=== PATIENT | female | born 1990 | race Caucasian/White ===

== ENCOUNTER 2017-08-26 22:15 | Inpatient (IN) | payer BC ==
[2017-08-26] MEDS ORDERED: Butorphanol 1 MG/ML SDV IVPUSH PRN (23:41)
[2017-08-26] MEDS ORDERED: Tranexamic Acid 1,000 MG in Sodium Chloride 0.9% 100 ML IV PRN (23:41)
[2017-08-26] MEDS ORDERED: Sodium Chloride 0.9% 10 ML Syringe FLUSH PRN (23:41)
[2017-08-26] MEDS ORDERED: Carboprost Tromethamine 250 MCG/1 ML Amp IM PRN (23:41)
[2017-08-26] MEDS ORDERED: Lidocaine 1% 50 ML MDV INJECT PRN (23:41)
[2017-08-26] MEDS ORDERED: Sodium Chloride 0.9% 2.5 ML Syringe FLUSH PRN (23:41)
[2017-08-26] MEDS ORDERED: Methylergonovine 0.2 MG/1 ML Amp IM PRN (23:41)
[2017-08-26] MEDS ORDERED: Misoprostol 200 MCG Tab PO PRN (23:41)
[2017-08-26] MEDS ORDERED: Nalbuphine 10 MG/1 ML Vial IVPUSH PRN (23:41)
[2017-08-26] MEDS ORDERED: Water For Irrigation,Sterile 1,000 ML Container IRR PRN (23:41)
[2017-08-26] MEDS ORDERED: Lactated Ringers 1,000 ML IV SCH (23:45)
[2017-08-26] MEDS ORDERED: Oxytocin/0.9 % Sodium Chloride 30 UNIT/500 ML BAG IV SCH (23:45)
[2017-08-27] MEDS ORDERED: Terbutaline 1 MG/ML SDV SUBCUT PRN (00:30)
[2017-08-27] MEDS ORDERED: Oxytocin/0.9 % Sodium Chloride 30 UNIT/500 ML BAG IV SCH (00:30)
[2017-08-27] MEDS ORDERED: Ropivacaine 0.2% 2 MG/ML 20 ML SDV ONE (05:43)
[2017-08-27] MEDS ORDERED: Ibuprofen 400 MG Tab PO PRN (10:58)
[2017-08-27] MEDS ORDERED: Acetaminophen 500 MG Tab PO PRN ×2 (10:58)
[2017-08-27] MEDS ORDERED: Docusate Sodium 100 MG Cap PO PRN (10:58)
[2017-08-27] MEDS ORDERED: Ibuprofen 800 MG Tab PO PRN (10:58)
[2017-08-27] MEDS ORDERED: Witch Hazel Medicated Pads 40/Jar TOP PRN (10:58)
[2017-08-27] MEDS ORDERED: oxyCODONE 5 MG Tab PO PRN (10:58)
[2017-08-27] MEDS ORDERED: Hydrocortisone 2.5% Crm 30 GM Tube TOP PRN (10:58)
[2017-08-27] MEDS ORDERED: Lanolin 100% Cream 7 GM Tube TOP PRN (10:58)
[2017-08-27] MEDS ORDERED: Benzocaine/Menthol 20%-0.5% Spray 78 GM Cannister TOP PRN (10:58)
[2017-08-27] MEDS ORDERED: Bisacodyl 10 MG Supp RECTAL PRN (10:58)
[2017-08-27] MEDS ORDERED: Ondansetron 4 MG/2 ML SDV IVPUSH PRN (10:58)
--- NOTE | 2017-08-27 19:43 | PCM48HPAN ---
Post Anesthesia Note - EVALUATION WITHIN 48HRS OF ANESTHETIC Vital Signs in Normal Range: Yes Patient Participated in Evaluation: Yes Respiratory Function Stable: Yes Airway Patent: Yes Cardiovascular Function Stable: Yes Hydration Status Stable: Yes Pain Control Satisfactory: Yes Nausea and Vomiting Control Satisfactory: Yes Mental Status Recovered: Yes Resp Rate: 17
--- NOTE | 2017-08-28 08:26 | PCM.PNPP ---
- General Info Date of Service: 08/28/17 Admission Dx/Problem (Free Text): 27yo P2 s/p PPD1 Subjective Update: She denies any complains today , Normal lochia Functional Status: Reports: Pain Controlled, Tolerating Diet, Ambulating, Urinating - Review of Systems General: Reports: No Symptoms HEENT: Reports: No Symptoms Pulmonary: Reports: No Symptoms Cardiovascular: Reports: No Symptoms Gastrointestinal: Reports: No Symptoms Genitourinary: Reports: No Symptoms Musculoskeletal: Reports: No Symptoms Skin: Reports: No Symptoms Neurological: Reports: No Symptoms Psychiatric: Reports: No Symptoms - General Info Date of Service: 08/28/17 - Patient Data Vital Signs - Most Recent: Last Vital Signs Temp 37.1 C 08/27/17 20:00 Pulse 72 08/27/17 20:00 Resp 18 08/27/17 20:00 BP 121/64 08/27/17 20:00 Pulse Ox 98 08/27/17 20:00 Weight - Most Recent: 78.925 kg Lab Results - Last 24 Hours: Laboratory Results - last 24 hr 08/27/17 08/28/17 Range/Units 06:43 04:58 Hgb 11.9 L (12.0-16.0) g/dL Hct 34.8 L (36.0-46.0) % Cord ABG pH 7.181 (7.18-7.38) Cord ABG Base Excess -6 (-10--2) Cord VBG pH 7.260 (7.25-7.45) Cord VBG Base Excess -6 (-10--2) Med Orders - Current: Current Medications Acetaminophen (Tylenol Extra Strength) 500 mg PO Q4H PRN PRN Reason: Pain Acetaminophen (Tylenol Extra Strength) 1,000 mg PO Q4H PRN PRN Reason: Pain Benzocaine/Menthol (Dermoplast Pain Relief 20%-0.5% [place]) 78 gm TOP ASDIRECTED PRN PRN Reason: Perineal Comfort Measure Bisacodyl (Dulcolax) 10 mg RECTAL .ONCE PRN PRN Reason: Constipation Docusate Sodium (Colace) 100 mg PO BID PRN PRN Reason: Constipation Emollient Ointment (Lansinoh Hpa) 0 gm TOP ASDIRECTED PRN PRN Reason: Sore Nipples Hydrocortisone (Proctozone-Hc 2.5% Crm) 1 gm TOP ASDIRECTED PRN PRN Reason: Itching Ibuprofen (Motrin) 400 mg PO Q4H PRN PRN Reason: Pain Ibuprofen (Motrin) 800 mg PO Q6H PRN PRN Reason: Pain Ondansetron HCl (Zofran) 4 mg IVPUSH Q6H PRN PRN Reason: Nausea/Vomiting Oxycodone HCl (Oxycodone) 5 mg PO Q2H PRN PRN Reason: Pain Witch Christianne (Tucks) 1 pad TOP ASDIRECTED PRN PRN Reason: comfort care Discontinued Medications Butorphanol Tartrate (Stadol) 1 mg IVPUSH Q1H PRN PRN Reason: Pain Carboprost Tromethamine (Hemabate Ds) 250 mcg IM ASDIRECTED PRN PRN Reason: Post Hemorrhage Tranexamic Acid 1,000 mg/ (Sodium Chloride) 110 mls @ 660 mls/hr IV ONETIME PRN PRN Reason: Bleeding Lactated Ringer's (Ringers, Lactated) 1,000 mls @ 150 mls/hr IV ASDIRECTED FRANK Oxytocin/Sodium Chloride (Oxytocin 30 Unit/500 Ml-Ns) 30 unit in 500 mls @ 250 mls/hr IV TITRATE FRANK Oxytocin/Sodium Chloride (Oxytocin 30 Unit/500 Ml-Ns) 30 unit in 500 mls @ 2 mls/hr IV TITRATE FRANK; Protocol Fentanyl/Bupivacaine HCl (Aehhxwqj-Wifgb-Gr 2 Mcg/Ml-0.125%) Confirm Administered Dose 100 mls @ as directed EP .STK-MED ONE Stop: 08/27/17 05:44 Last Admin: 08/27/17 13:57 Dose: Not Given Lidocaine HCl (Xylocaine 1%) 50 ml INJECT .ONCE PRN PRN Reason: Laceration repair Methylergonovine Maleate (Methergine) 0.2 mg IM ASDIRECTED PRN PRN Reason: Post Hemorrhage Misoprostol (Cytotec) 200 mcg PO .ONCE PRN PRN Reason: Post Hemorrhage Nalbuphine HCl (Nubain) 10 mg IVPUSH Q1H PRN PRN Reason: Pain (severe 7-10) Ropivacaine (Naropin 0.2%) Confirm Administered Dose 20 ml .ROUTE .STK-MED ONE Stop: 08/27/17 05:44 Last Admin: 08/27/17 13:57 Dose: Not Given Sodium Chloride (Saline Flush) 10 ml FLUSH ASDIRECTED PRN PRN Reason: Keep Vein Open Sodium Chloride (Saline Flush) 2.5 ml FLUSH ASDIRECTED PRN PRN Reason: Keep Vein Open Sterile Water (Sterile Water For Irrigation) 1,000 ml IRR ASDIRECTED PRN PRN Reason: delivery Terbutaline Sulfate (Brethine) 0.25 mg SUBCUT ASDIRECTED PRN PRN Reason: Tacysystole - Infant Interaction Disposition, : [place] to Nursery Feeding: Breastfed ; Nursed Well - Recovery Exam Fundal Tone: Firm Fundal Level: At Umbilicus Fundal Placement: Midline Lochia Amount: Small Lochia Color: Rubra/Red Perineum Description: Intact, Minimal Bruising/Swelling Episiotomy/Laceration: None Bladder Status: Voiding Urinary Elimination: Voided - Exam General: Alert, Oriented HEENT: Pupils Equal Neck: Supple Lungs: Clear to Auscultation Cardiovascular: Regular Rate, Regular Rhythm GI/Abdominal Exam: Normal Bowel Sounds Extremities: Normal Inspection Psy/Mental Status: Alert - Problem List & Annotations (1) Vaginal delivery SNOMED Code(s): 512063451 Code(s): O80 - ENCOUNTER FOR FULL-TERM UNCOMPLICATED DELIVERY Status: Acute Current Visit: Yes - Problem List Review Problem List Initiated/Reviewed/Updated: Yes - My Orders Last 24 Hours: My Active Orders 08/27/17 10:58 Patient Status [ADT] Routine May Shower [RC] ASDIRECTED Up ad Cristina [RC] ASDIRECTED Vital Signs [RC] PER UNIT ROUTINE Acetaminophen [Tylenol Extra Strength] 1,000 mg PO Q4H PRN Acetaminophen [Tylenol Extra Strength] 500 mg PO Q4H PRN Benzocaine/Menthol [Dermoplast Pain Relief 20%-0.5% [place]] 78 gm TOP ASDIRECTED PRN Bisacodyl [Dulcolax] 10 mg RECTAL .ONCE PRN Docusate Sodium [Colace] 100 mg PO BID PRN Hydrocortisone [Proctozone-HC 2.5% Crm] 1 gm TOP ASDIRECTED PRN Ibuprofen [Motrin] 400 mg PO Q4H PRN Ibuprofen [Motrin] 800 mg PO Q6H PRN Lanolin [Lansinoh HPA] See Dose Instructions TOP ASDIRECTED PRN Ondansetron [Zofran] 4 mg IVPUSH Q6H PRN Witch Christianne [Tucks] 1 pad TOP ASDIRECTED PRN oxyCODONE 5 mg PO Q2H PRN Assess Lochia [WOMSER] Per Unit Routine Assess Uterine Involution [WOMSER] Per Unit Routine Peripheral IV Discontinue [OM.PC] Routine Resuscitation Status Routine 08/27/17 Lunch Regular Diet [DIET] - Assessment Assessment:: 27 yo P2 s/p PPD1 - Plan Plan:: Stable , Normal lochia D/C home today , routine care
--- NOTE | 2017-08-28 21:34 | OR ---
SURGEON: RAKESH SONI DATE OF PROCEDURE: Normal Spontaneous vaginal delivery PREOPERATIVE DIAGNOSIS: A 27-year-old 2, para 1-0-0-1 at 39 weeks 0 days, admitted in latent labor with SROM. GBS negative. POSTOPERATIVE DIAGNOSIS: Normal spontaneous vaginal delivery. ESTIMATED BLOOD LOSS: 200. IV FLUIDS: 1500. FINDINGS: Live male , delivered at 6:43 a.m., Apgars were 9 and 9. Weight is 2830g. Three-vessel cord was noted. BRIEF HISTORY: A 27-year-old, G2, P1, who was a low risk patient of [facility]. The patient came in complaining of leakage of fluid. When she was examined, leakage of fluid was confirmed.VE: 3cm/50/-2 . The patient made normal progress and became fully dilated. Heart tracing was category I. PROCEDURE IN DETAIL: With the patient being fully dilated, the patient was encouraged to push. The patient had good pushing effort. The head was delivered followed by the anterior and the posterior shoulder, then the 's body was delivered. The infant was placed on the maternal abdomen. Delayed cord clamping was observed. The cord blood gases were also obtained. After the cord was clamped and cut, the placenta was delivered via controlled cord traction. The perineum was then inspected and was noted to be intact. The uterus was also noted to be firm. The patient tolerated the procedure well. She was left in the room bonding with the . RAEANN LAURENT /[id number] MELANI
== END 2017-08-28 12:10 | disposition home or self-care (01) | DRG 560 ==
LOC: MW.OBCHECK 22:15 → MW.OB 22:17 → MW.OBCHECK 23:41 → OBSVTOIN 08-27 06:43 → MW.OB 08-27 10:32
PROVIDERS: ADMIT Obstetrics & Gynecology; ATTEND Obstetrics & Gynecology
PROC: 10E0XZZ Delivery of Products of Conception, External Approach (ICD-10-PCS; principal; 2017-08-27)
DX: O42.02 Full-term premature rupture of membranes, onset of labor within 24 hours of rupture (principal); Z3A.37 37 weeks gestation of pregnancy; Z37.0 Single live birth
CPT/HCPCS: 36415; 51702; 59025; 59409; 82803; 85014; 85018; 85027; 86850; 86900; 86901